=== PATIENT | male | born 1990 | race African-American/Black ===

== ENCOUNTER 2022-03-20 21:15 | Emergency (ER) | payer OTHER ==
--- NOTE | 2022-03-20 21:49 | ER ---
Nurse's Notes [facility] Name: Haja Mata Jr Age: 32 yrs Sex: Male : 1990 Arrival Date: 03/20/2022 Time: 21:21 Bed 9 Private MD: Diagnosis: Elevated blood-pressure reading, without diagnosis of hypertension;Gout, unspecified Presentation: 03/20 21:29 Chief complaint: Patient states: Pt reports spontaneous onset of left knee pain x2 kb3 days. Reports previous similar episodes. Coronavirus screen: Vaccine status: Patient reports being unvaccinated. Client denies travel out of the [place] in the last 14 days. At this time, the client does not indicate any symptoms associated with coronavirus-19. Ebola Screen: Patient negative for fever greater than or equal to 101.5 degrees Fahrenheit, and additional compatible Ebola Virus Disease symptoms Patient denies exposure to infectious person. Patient denies travel to an Ebola-affected area in the 21 days before illness onset. No symptoms or risks identified at this time. Initial Sepsis Screen: Does the patient meet any 2 criteria? No. Patient's initial sepsis screen is negative. Does the patient have a suspected source of infection? No. Patient's initial sepsis screen is negative. Risk Assessment: Do you want to hurt yourself or someone else? Patient reports no desire to harm self or others. Onset of symptoms was March 18, 2022. 21:29 Method Of Arrival: Ambulatory kb3 21:29 Acuity: ROBERT 4 kb3 Triage Assessment: 21:31 General: Appears in no apparent distress. Behavior is calm, cooperative. Pain: kb3 Complains of pain in right knee Pain does not radiate. Pain currently is 8 out of 10 on a pain scale. Quality of pain is described as. Historical: - Allergies: 21:31 PENICILLINS; kb3 - Home Meds: 21:31 ibuprofen 200 mg Oral cap [Active]; trazodone 150 mg Oral tab [Active]; kb3 - PMHx: 21:31 insomnia; Osteoarthritis; kb3 - PSHx: 21:31 None; kb3 - Immunization history:: Adult Immunizations up to date, Client reports having NOT received the Covid vaccine. Last tetanus immunization: unknown. - Social history:: Smoking status: Reported history of juuling and/or vaping. Screenin:40 Abuse screen: Denies threats or abuse. Denies injuries from another. Nutritional eh3 screening: No deficits noted. Tuberculosis screening: No symptoms or risk factors identified. Fall Risk Ambulatory Aid- Crutches/Cane/Walker (15 pts). Total Grant Fall Scale indicates No Risk (0-24 pts). Vital Signs: 21:29 BP 141 / 93; Pulse 90; Resp 18; Pulse Ox 99% ; Weight 127.01 kg; Height 5 ft. 10 in. kb3 (177.80 cm); Pain 8/10; 21:29 Body Mass Index 40.18 (127.01 kg, 177.80 cm) kb3 ED Course: 21:21 Patient arrived in ED. bp1 21:31 Triage completed. kb3 21:33 Arm band placed on right wrist. kb3 21:38 Haleigh Baldwin FNP-C is [facility]. snw 21:39 Ajit Hunt MD is Attending Physician. snw 21:43 Tanisha Burr, ARIEL is Primary Nurse. eh3 22:40 Patient has correct armband on for positive identification. Bed in low position. Call eh3 light in reach. Side rails up X2. 22:40 No provider procedures requiring assistance completed. Patient did not have IV access eh3 during this emergency room visit. 22:41 Crutch training done. eh3 Administered Medications: 10:05 Drug: colchicine 1.2 mg Route: PO; eh3 22:40 Follow up: Response: Marked relief of symptoms eh3 10:05 Drug: HYDROcodone-acetaminophen 5 mg-325 mg 1 tabs Route: PO; eh3 22:40 Follow up: Response: Marked relief of symptoms eh3 Medication: 22:42 VIS not applicable for this client. eh3 Outcome: 21:49 Discharge ordered by . snw 22:40 Discharged to home with crutches. eh3 22:40 Condition: stable 22:40 Discharge instructions given to patient, Instructed on discharge instructions, follow up and referral plans. medication usage, Demonstrated understanding of instructions, follow-up care, medications, Prescriptions given X 1. 22:42 Patient left the ED. eh3 Signatures: Haleigh Baldwin FNP-C REJECTOR-Csnw Mckenzie Cummings bp1 Tanisha Burr RN RN eh3 Fidelia, Makenzie, RN RN kb3
--- NOTE | 2022-03-20 21:50 | EDPHYS ---
Physician Documentation [facility] Name: Haja Mata Jr Age: 32 yrs Sex: Male : 1990 Arrival Date: 03/20/2022 Time: 21:21 Bed 9 Private MD: SULMA Physician Ajit Hunt HPI: 03/20 22:07 This 32 yrs old Black Male presents to ER via Ambulatory with complaints of Knee Pain. snw 22:07 The patient presents with pain, that is acute, swelling, tenderness. The complaints snw affect the left knee. Context: The problem was sustained at an unknown site, resulted from an unknown cause, the patient can partially bear weight, the patient is able to ambulate, with moderate difficulty. Onset: The symptoms/episode began/occurred suddenly, 2 day(s) ago, and became persistent. Associated signs and symptoms: Pertinent positives: swelling. Treatment prior to arrival includes: motrin. Severity of symptoms: At their worst the symptoms were moderate, severe. The patient has experienced similar episodes in the past, usually goes away within a week. The patient has not recently seen a physician. Pt counseled on elevated blood pressure. Historical: - Allergies: 21:31 PENICILLINS; kb3 - Home Meds: 21:31 ibuprofen 200 mg Oral cap [Active]; trazodone 150 mg Oral tab [Active]; kb3 - PMHx: 21:31 insomnia; Osteoarthritis; kb3 - PSHx: 21:31 None; kb3 - Immunization history:: Adult Immunizations up to date, Client reports having NOT received the Covid vaccine. Last tetanus immunization: unknown. - Social history:: Smoking status: Reported history of juuling and/or vaping. ROS: 22:03 Constitutional: Negative for fever, chills, and weight loss, Eyes: Negative for injury, snw pain, redness, and discharge, ENT: Negative for injury, pain, and discharge, Neck: Negative for injury, pain, and swelling, Cardiovascular: Negative for chest pain, palpitations, and edema, Respiratory: Negative for shortness of breath, cough, wheezing, and pleuritic chest pain, Abdomen/GI: Negative for abdominal pain, nausea, vomiting, diarrhea, and constipation, Back: Negative for injury and pain, : Negative for injury, bleeding, discharge, and swelling, Skin: Negative for injury, rash, and discoloration, Neuro: Negative for headache, weakness, numbness, tingling, and seizure, Psych: Negative for depression, anxiety, suicide ideation, homicidal ideation, and hallucinations. 22:03 MS/extremity: Positive for pain, swelling, tenderness, of the left knee. Exam: 22:00 Constitutional: This is a well developed, well nourished patient who is awake, alert, snw and in no acute distress. Head/Face: Normocephalic, atraumatic. Eyes: Pupils equal round and reactive to light, extra-ocular motions intact. Lids and lashes normal. Conjunctiva and sclera are non-icteric and not injected. Cornea within normal limits. Periorbital areas with no swelling, redness, or edema. ENT: Nares patent. No nasal discharge, no septal abnormalities noted. Tympanic membranes are normal and external auditory canals are clear. Oropharynx with no redness, swelling, or masses, exudates, or evidence of obstruction, uvula midline. Mucous membranes moist. Neck: Trachea midline, no thyromegaly or masses palpated, and no cervical lymphadenopathy. Supple, full range of motion without nuchal rigidity, or vertebral point tenderness. No Meningismus. Chest/axilla: Normal chest wall appearance and motion. Nontender with no deformity. No lesions are appreciated. Cardiovascular: Regular rate and rhythm with a normal S1 and S2. No gallops, murmurs, or rubs. Normal PMI, no JVD. No pulse deficits. Respiratory: Lungs have equal breath sounds bilaterally, clear to auscultation and percussion. No rales, rhonchi or wheezes noted. No increased work of breathing, no retractions or nasal flaring. Abdomen/GI: Soft, non-tender, with normal bowel sounds. No distension or tympany. No guarding or rebound. No evidence of tenderness throughout. Back: No spinal tenderness. No costovertebral tenderness. Full range of motion. Skin: Warm, dry with normal turgor. Normal color with no rashes, no lesions, and no evidence of cellulitis. Neuro: Awake and alert, GCS 15, oriented to person, place, time, and situation. Cranial nerves II-XII grossly intact. Motor strength 5/5 in all extremities. Sensory grossly intact. Cerebellar exam normal. Normal gait. Psych: Awake, alert, with orientation to person, place and time. Behavior, mood, and affect are within normal limits. 22:06 Musculoskeletal/extremity: ROM: limited active range of motion due to pain, in the left snw knee, tenderness to mild palpation just under patella, mild edema, Circulation is intact in all extremities. Sensation intact. Joints: just under left patella, pt has tenderness to light touch, painful on movement, no trauma. Vital Signs: 21:29 BP 141 / 93; Pulse 90; Resp 18; Pulse Ox 99% ; Weight 127.01 kg; Height 5 ft. 10 in. kb3 (177.80 cm); Pain 8/10; 21:29 Body Mass Index 40.18 (127.01 kg, 177.80 cm) kb3 MDM: 21:39 Patient medically screened. snw 22:02 Data reviewed: vital signs, nurses notes. Data interpreted: Pulse oximetry: on room air snw is 99 %. Interpretation: normal. Counseling: I had a detailed discussion with the patient and/or guardian regarding: the historical points, exam findings, and any diagnostic results supporting the discharge/admit diagnosis, the presence of at least one elevated blood pressure reading (>120/80) during this emergency department visit, the need for outpatient follow up, to return to the emergency department if symptoms worsen or persist or if there are any questions or concerns that arise at home. Special discussion: I have referred the patient to see his PCP for further evaluation of high blood pressure. Based on the history and exam findings, there is no indication for further emergent testing or inpatient evaluation. I discussed with the patient/guardian the need to see the primary care provider for further evaluation of the symptoms. 03/20 21:57 Order name: Crutches; Complete Time: 22:37 snw 03/20 21:57 Order name: Crutch Training; Complete Time: 22:37 snw Administered Medications: 10:05 Drug: colchicine 1.2 mg Route: PO; 3 22:40 Follow up: Response: Marked relief of symptoms eh3 10:05 Drug: HYDROcodone-acetaminophen 5 mg-325 mg 1 tabs Route: PO; eh3 22:40 Follow up: Response: Marked relief of symptoms eh3 Disposition Summary: 03/20/22 21:49 Discharge Ordered Location: Home snw Condition: Stable snw Diagnosis - Elevated blood-pressure reading, without diagnosis of hypertension snw - Gout, unspecified snw Followup: snw - With: Emergency Department - When: As needed - Reason: Worsening of condition Followup: snw - With: Private Physician - When: 5 - 6 days - Reason: Recheck today's complaints, Continuance of care, Re-evaluation by your physician Discharge Instructions: - Discharge Summary Sheet snw - Crutch Use, Adult snw - Gout snw - Hypertension, Adult snw - Heart Disease Prevention snw - Low-Purine Eating Plan snw - How to Take Your Blood Pressure, [id number] snw - DASH Eating Plan snw - Form - Blood Pressure Record Sheet snw Forms: - Medication Reconciliation Form snw - Work release form snw - Thank You Letter snw - Antibiotic Education snw - Prescription Opioid Use snw Prescriptions: - Prednisone 20 mg Oral Tablet - take 2 tablets by ORAL route once daily for 5 days; 10 tablet; Refills: 0, snw Product Selection Permitted Signatures: Haleigh Baldwin, MANOJ-C SIDE SEAM MACHINE OPERATOR-Csnw Tanisha Burr, RN RN eh3 Makenzie Mistry RN RN kb3 Corrections: (The following items were deleted from the chart) 22:05 22:03 MS/extremity: Positive for pain, swelling, tenderness, of the right knee, snw snw 22:06 22:00 Musculoskeletal/extremity: ROM: limited active range of motion due to pain, in snw the right knee, snw
[2022-03-20] MEDS ORDERED: HYDROCODONE/APAP 5/325 MG TAB ONE (22:17)
[2022-03-20] MEDS ORDERED: COLCHICINE 0.6 MG TAB ONE (22:17)
[2022-03-21 00:25] VITALS: BP 141/93; O2SAT 99
== END 2022-03-20 22:42 | disposition home or self-care (01) ==
LOC: ER 21:15
DX: M10.9 Gout, unspecified (principal); R03.0 Elevated blood-pressure reading, without diagnosis of hypertension; Z88.0 Allergy status to penicillin
CPT/HCPCS: 99283

== ENCOUNTER 2023-03-25 14:32 | Emergency (ER) | payer OTHER ==
[2023-03-25] MEDS ORDERED: COLCHICINE 0.6 MG TAB ONE (15:21)
--- NOTE | 2023-03-25 16:20 | EDPHYS ---
Physician Documentation [facility] Name: Haja Major Jr Age: 33 yrs Sex: Male : 1990 Arrival Date: 03/25/2023 Time: 14:32 Bed 9 Private MD: ED Physician Shalini Galindo HPI: 03/25 18:10 This 33 yrs old Black Male presents to ER via Ambulatory with complaints of Foot Pain. kb 18:10 The patient presents with pain, swelling. The complaints affect the left foot. Context: kb The problem was sustained at home, the patient can fully bear weight, the patient is able to ambulate. Onset: The symptoms/episode began/occurred 4 day(s) ago. 18:10 Modifying factors: The symptoms are alleviated by nothing, the symptoms are aggravated kb by nothing. Associated signs and symptoms: Pertinent positives: swelling, Pertinent negatives: calf tenderness, fever, nausea, numbness, rash, tingling, vomiting, warmth, weakness. Severity of symptoms: At their worst the symptoms were mild, in the emergency department the symptoms are unchanged. The patient has experienced similar episodes in the past. The patient has not recently seen a physician. Pt reports he is having a gout flare up in left great toe. STates he came to get the treatment that he got last time because it worked well. Historical: - Allergies: 15:06 PENICILLINS; iw - PMHx: 15:06 insomnia; osteoarthritis; iw - Social history:: Smoking status: . ROS: 18:08 Constitutional: Negative for fever, chills, and weight loss. kb 18:08 MS/extremity: Positive for erythema, pain, swelling, of the left first toe. 18:09 All other systems are negative. kb Exam: 18:09 Constitutional: This is a well developed, well nourished patient who is awake, alert, kb and in no acute distress. Head/Face: Normocephalic, atraumatic. ENT: Moist Mucous membranes Cardiovascular: Regular rate and rhythm with a normal S1 and S2. No gallops, murmurs, or rubs. No pulse deficits. Respiratory: Respirations even and unlabored. No increased work of breathing. Talking in full sentences Skin: Warm, dry with normal turgor. Normal color. Neuro: Awake and alert, GCS 15, oriented to person, place, time, and situation. Moves all extremities. Normal gait. 18:09 Musculoskeletal/extremity: Extremities: grossly normal except: noted in the left first toe: erythema, pain, swelling, ROM: intact in all extremities, Circulation is intact in all extremities. Sensation intact. Weight bearing: able to fully bear weight. Vital Signs: 15:06 BP 118 / 83; Pulse 76; Resp 16; Temp 98.1; Pulse Ox 98% ; Weight 127.01 kg; Height 5 iw ft. 10 in. ; Pain 7/10; 15:06 Body Mass Index 40.18 (127.01 kg, 177.8 cm) iw 15:06 Pain Scale: Adult iw MDM: 14:52 Patient medically screened. kb 16:20 ED course: Pt states he needs to leave. Requests same prescriptions that he got last kb time because they resolved the problem. 18:09 Differential diagnosis: tendonitis, cellulitis, gout. Data reviewed: vital signs, kb nurses notes. Counseling: I had a detailed discussion with the patient and/or guardian regarding the historical points, exam findings, and any diagnostic results supporting the discharge/admit diagnosis, the need for outpatient follow up, a family practitioner, to return to the emergency department if symptoms worsen or persist or if there are any questions or concerns that arise at home. Administered Medications: 15:10 Drug: Colcrys PO 1.2 mg Route: PO; iw 16:00 Follow up: Response: No adverse reaction iw Disposition Summary: 03/25/23 16:19 Discharge Ordered Location: Home kb Condition: Stable kb Diagnosis - Gout, unspecified kb Followup: kb - With: Emergency Department - When: As needed - Reason: Worsening of condition Followup: kb - With: Private Physician - When: 2 - 3 days - Reason: Recheck today's complaints, Continuance of care, Re-evaluation by your physician Discharge Instructions: - Discharge Summary Sheet kb - Gout, [id number] kb Forms: - Medication Reconciliation Form kb - Thank You Letter kb - Antibiotic Education kb - Prescription Opioid Use kb - Patient Portal Instructions kb - Leadership Thank You Letter kb Prescriptions: - Cephalexin 500 mg Oral Capsule - take 1 capsule by ORAL route every 8 hours for 10 days; 30 capsule; Refills: 0, kb Product Selection Permitted - Diclofenac Sodium 75 mg Oral tablet,delayed release (DR/EC) - take 1 tablet by ORAL route 2 times per day As needed; 30 tablet; Refills: 0, kb Product Selection Permitted Signatures: Cindi Parnell, Beatris Trujillo RN RN iw Corrections: (The following items were deleted from the chart) 18:09 18:08 MS/extremity: Positive for erythema, pain, swelling, of the right foot, kb kb
--- NOTE | 2023-03-25 16:20 | ER ---
Nurse's Notes [facility] Name: Haja Major Jr Age: 33 yrs Sex: Male : 1990 Arrival Date: 03/25/2023 Time: 14:32 Bed 9 Private MD: Diagnosis: Gout, unspecified Presentation: 03/25 15:04 Chief complaint: Patient states: gout to left great toe. Coronavirus screen: At this iw time, the client does not indicate any symptoms associated with coronavirus-19. Ebola Screen: Patient negative for fever greater than or equal to 101.5 degrees Fahrenheit, and additional compatible Ebola Virus Disease symptoms Patient denies exposure to infectious person. Patient denies travel to an Ebola-affected area in the 21 days before illness onset. No symptoms or risks identified at this time. Initial Sepsis Screen: Does the patient meet any 2 criteria? No. Patient's initial sepsis screen is negative. Does the patient have a suspected source of infection? No. Patient's initial sepsis screen is negative. Risk Assessment: Do you want to hurt yourself or someone else? Patient reports no desire to harm self or others. 15:04 Method Of Arrival: Ambulatory iw 15:04 Acuity: ROBERT 4 iw Triage Assessment: 15:30 General: Appears in no apparent distress. Behavior is calm, cooperative. iw Historical: - Allergies: 15:06 PENICILLINS; iw - PMHx: 15:06 insomnia; osteoarthritis; iw - Social history:: Smoking status: . Screenin:00 [facility] ED Fall Risk Assessment (Adult) Score/Fall Risk Level 0 - 2 = Low Risk. Abuse iw screen: Denies threats or abuse. Denies injuries from another. Nutritional screening: No deficits noted. Tuberculosis screening: No symptoms or risk factors identified. Assessment: 15:30 General: Appears in no apparent distress. Behavior is calm, cooperative. Pain: iw Complains of pain in left foot and left first toe. Neuro: Level of Consciousness is awake, alert, obeys commands, Oriented to person, place, time, situation. Musculoskeletal: Swelling present in left first toe and left foot. Vital Signs: 15:06 BP 118 / 83; Pulse 76; Resp 16; Temp 98.1; Pulse Ox 98% ; Weight 127.01 kg; Height 5 iw ft. 10 in. ; Pain 7/10; 15:06 Body Mass Index 40.18 (127.01 kg, 177.8 cm) iw 15:06 Pain Scale: Adult iw ED Course: 14:37 Patient arrived in ED. im 14:52 Cindi Parnell FNP-C is [facility]. kb 14:52 Shalini Galindo MD is Attending Physician. kb 15:06 Triage completed. iw 15:06 Arm band placed on. iw 15:07 Beatris Rice, RN is Primary Nurse. iw 16:25 No provider procedures requiring assistance completed. Patient did not have IV access iw during this emergency room visit. Administered Medications: 15:10 Drug: Colcrys PO 1.2 mg Route: PO; iw 16:00 Follow up: Response: No adverse reaction iw Outcome: 16:19 Discharge ordered by . kb 16:25 Discharged to home ambulatory. iw 16:25 Condition: good 16:25 Discharge instructions given to patient, Demonstrated understanding of instructions, follow-up care, medications, Prescriptions given X 1. 16:26 Patient left the ED. iw Signatures: Cindi Parnell FNP-C PRODUCTION OPERATIONS INSPECTOR-Beatris Quinonez, RN RN iw Jonna Keller im Corrections: (The following items were deleted from the chart) 15:07 15:06 Pulse 76bpm; Resp 16bpm; Pulse Ox 98%; Temp 98.1F; 127.01 kg; Height 5 ft. 10 iw in.; BMI: 40.1; Pain 7/10, Adult; iw
[2023-03-25 16:33] VITALS: BP 118/83; TEMP 98.1; O2SAT 98
== END 2023-03-25 16:26 | disposition home or self-care (01) ==
LOC: ER 14:32
DX: M10.9 Gout, unspecified (principal); Z88.0 Allergy status to penicillin
CPT/HCPCS: 99283

== ENCOUNTER → 2023-09-18 | Emergency (ER) | payer OTHER ==
[~2023-09-18] MED LIST: COLCHICINE 0.6 MG TAB ONE; KETOROLAC 30 MG/ML INJ ONE; dexAMETHasone 10 MG/ML VIAL ONE
--- NOTE | 2023-09-18 19:46 | EDPHYS ---
Physician Documentation [facility] Name: Haja Major Jr Age: 33 yrs Sex: Male : 1990 Arrival Date: 09/18/2023 Time: 18:23 Bed 11 Private MD: ED Physician Shalini Galindo HPI: 09/18 20:03 This 33 yrs old Black Male presents to ER via Ambulatory with complaints of Foot Pain. kb 20:03 Pt is a 33 year old male who presents with swelling, redness and pain to left great toe kb that started 5 days ago. States it feels the same as previous gout flare-ups. Denies fever, chills. States he normally gets cephalexin and diclofenac and that makes it go away. Historical: - Allergies: 18:38 PENICILLINS; ap3 - Home Meds: 18:38 Lisinopril Oral [Active]; ap3 - PMHx: 18:38 insomnia; osteoarthritis; Gout; ap3 - Immunization history:: Client reports having NOT received the Covid vaccine. Flu vaccine is not up to date. - Social history:: Smoking status: Reported history of juuling and/or vaping. ROS: 20:02 Constitutional: Negative for fever, chills, and weight loss, kb 20:02 MS/extremity: Positive for erythema, pain, swelling, tenderness, of the left first toe, 20:02 All other systems are negative, Exam: 20:02 Constitutional: This is a well developed, well nourished patient who is awake, alert, kb and in no acute distress. Head/Face: Normocephalic, atraumatic. ENT: Moist Mucous membranes Cardiovascular: Regular rate Respiratory: Respirations even and unlabored. No increased work of breathing. Talking in full sentences Neuro: Awake and alert, GCS 15, oriented to person, place, time, and situation. Moves all extremities. Normal gait. 20:02 Musculoskeletal/extremity: Extremities: grossly normal except: noted in the left first toe: decreased ROM, erythema, pain, swelling, tenderness, ROM: limited passive range of motion due to pain, Circulation is intact in all extremities. Sensation intact. Weight bearing: can bear weight with assistance only, uses crutches, Vital Signs: 18:36 BP 141 / 82; Pulse 107; Resp 17; Temp 97.4; Pulse Ox 99% ; Weight 131.54 kg; Height 5 ap3 ft. 10 in. ; Pain 8/10; 20:05 BP 135 / 75; Pulse 89; Pulse Ox 100% on R/A; ap3 18:36 Body Mass Index 41.61 (131.54 kg, 177.8 cm) ap3 18:36 Pain Scale: Adult ap3 MDM: 18:33 Patient medically screened. kb 20:02 Differential diagnosis: contusion, cellulitis, gout. Data reviewed: vital signs, nurses kb notes. Counseling: I had a detailed discussion with the patient and/or guardian regarding the historical points, exam findings, and any diagnostic results supporting the discharge/admit diagnosis, the need for outpatient follow up, a family practitioner, to return to the emergency department if symptoms worsen or persist or if there are any questions or concerns that arise at home. Administered Medications: 18:49 Drug: Ketorolac IM 30 mg IM once Route: IM; Site: left deltoid; ap3 20:03 Follow up: Response: No adverse reaction cm10 18:49 Drug: Colcrys PO 1.2 mg PO once Route: PO; ap3 20:03 Follow up: Response: No adverse reaction cm10 20:03 Drug: Colcrys PO 0.6 mg PO once Route: PO; cm10 20:03 Follow up: Response: Medication administered at discharge. cm10 20:03 Drug: Dexamethasone IM 10 mg IM once Route: IM; Site: right vastus lateralis; cm10 20:03 Follow up: Response: Medication administered at discharge. cm10 Disposition Summary: 09/18/23 19:46 Discharge Ordered Notes: Location: Home kb Condition: Stable kb Diagnosis - Gout, unspecified kb Followup: kb - With: Emergency Department - When: As needed - Reason: Worsening of condition Followup: kb - With: Private Physician - When: 2 - 3 days - Reason: Recheck today's complaints, Continuance of care, Re-evaluation by your physician Discharge Instructions: - Discharge Summary Sheet kb - Gout, [id number] kb Forms: - Medication Reconciliation Form kb - Thank You Letter kb - Antibiotic Education kb - Prescription Opioid Use kb - Patient Portal Instructions kb - Leadership Thank You Letter kb Prescriptions: - Cephalexin 500 mg Oral Capsule - take 1 capsule ORAL route every 8 hours for 10 days; 30 capsule; Refills: 0, kb Product Selection Permitted - Diclofenac Sodium 75 mg Oral tablet, delayed release (enteric coated) - take 1 tablet ORAL route 2 times per day As needed; 30 tablet; Refills: 0, kb Product Selection Permitted Signatures: Cindi Parnell FNP-C FNP-Ckb Prokisch, Amanda, RN RN ap3 Lynne Escobar RN RN cm10
--- NOTE | 2023-09-18 19:46 | ER ---
Nurse's Notes [facility] Name: Haja Major Jr Age: 33 yrs Sex: Male : 1990 Arrival Date: 09/18/2023 Time: 18:23 Bed 11 Private MD: Diagnosis: Gout, unspecified Presentation: 09/18 18:36 Chief complaint: Patient states: he started having left foot pain and swelling on ap3 Sunday09/14/2023. patient states his pain is currently a 8/10 on the pain scale. Coronavirus screen: At this time, the client does not indicate any symptoms associated with coronavirus-19. Ebola Screen: No symptoms or risks identified at this time. Initial Sepsis Screen: Does the patient meet any 2 criteria? No. Patient's initial sepsis screen is negative. Does the patient have a suspected source of infection? No. Patient's initial sepsis screen is negative. Risk Assessment: Do you want to hurt yourself or someone else? Patient reports no desire to harm self or others. Onset of symptoms was September 14, 2023. 18:36 Method Of Arrival: Ambulatory ap3 18:36 Acuity: ROBERT 4 ap3 Triage Assessment: 18:38 General: Appears in no apparent distress. Behavior is calm, cooperative, appropriate ap3 for age. Pain: Complains of pain in left foot Pain currently is 8 out of 10 on a pain scale. Neuro: Level of Consciousness is awake, alert, obeys commands, Oriented to person, place, time, situation, Appropriate for age. Cardiovascular: Patient's skin is warm and dry. Respiratory: Airway is patent Respiratory effort is even, unlabored, Respiratory pattern is regular, symmetrical. Historical: - Allergies: 18:38 PENICILLINS; ap3 - Home Meds: 18:38 Lisinopril Oral [Active]; ap3 - PMHx: 18:38 insomnia; osteoarthritis; Gout; ap3 - Immunization history:: Client reports having NOT received the Covid vaccine. Flu vaccine is not up to date. - Social history:: Smoking status: Reported history of juuling and/or vaping. Screenin:39 [facility] ED Fall Risk Assessment (Adult) History of falling in the last 3 months, ap3 including since admission No falls in past 3 months (0 pts). Abuse screen: Denies threats or abuse. Nutritional screening: No deficits noted. Tuberculosis screening: No symptoms or risk factors identified. Vital Signs: 18:36 BP 141 / 82; Pulse 107; Resp 17; Temp 97.4; Pulse Ox 99% ; Weight 131.54 kg; Height 5 ap3 ft. 10 in. ; Pain 8/10; 20:05 BP 135 / 75; Pulse 89; Pulse Ox 100% on R/A; ap3 18:36 Body Mass Index 41.61 (131.54 kg, 177.8 cm) ap3 18:36 Pain Scale: Adult ap3 ED Course: 18:28 Patient arrived in ED. kj1 18:29 [facility] kb 18:29 Shalini Galindo MD is Attending Physician. kb 18:38 Triage completed. ap3 18:39 Arm band placed on right wrist. ap3 18:39 Patient has correct armband on for positive identification. Bed in low position. Call ap3 light in reach. Side rails up X 1. Pulse ox on. NIBP on. 18:39 No provider procedures requiring assistance completed. ap3 20:04 Patient did not have IV access during this emergency room visit. ap3 20:05 Provided Education on: discharge instructions. ap3 Administered Medications: 18:49 Drug: Ketorolac IM 30 mg IM once Route: IM; Site: left deltoid; ap3 20:03 Follow up: Response: No adverse reaction cm10 18:49 Drug: Colcrys PO 1.2 mg PO once Route: PO; ap3 20:03 Follow up: Response: No adverse reaction cm10 20:03 Drug: Colcrys PO 0.6 mg PO once Route: PO; cm10 20:03 Follow up: Response: Medication administered at discharge. cm10 20:03 Drug: Dexamethasone IM 10 mg IM once Route: IM; Site: right vastus lateralis; cm10 20:03 Follow up: Response: Medication administered at discharge. cm10 Medication: 18:39 VIS not applicable for this client. ap3 Outcome: 19:46 Discharge ordered by . kb 20:04 Discharged to home ambulatory, ap3 20:04 Condition: good 20:04 Discharge instructions given to patient, Instructed on discharge instructions, follow up and referral plans. medication usage, Demonstrated understanding of instructions, follow-up care, medications, Prescriptions given X 2, 20:05 Patient left the ED. ap3 Signatures: Cindi Parnell, Breann Becerril, ARIEL RN ap3 Gretel Parnell kj1 Lynne Escobar, RN RN cm10
[2023-09-18 20:33] VITALS: BP 135/75; TEMP 97.4; O2SAT 100
== END ==
LOC: ER 18:23
DX: M10.9 Gout, unspecified (principal); Z88.0 Allergy status to penicillin
CPT/HCPCS: J1100